=== PATIENT | male | born 1995 | race Caucasian/White ===

== ENCOUNTER 2019-08-22 07:39 | Emergency (ER) | payer MEDICAID ==
[~2019-08-22] VITALS: Ht 170.2 cm; Wt 86.4 kg
[~2019-08-22 07:39] MED LIST: IBUP200C PO; TYLE325T5 PO; VENTAER INH; ZITH250T PO
[2019-08-22 08:09] LABS: HEMATOCRIT 39.8 % (42.0-52.0); HEMOGLOBIN 12.8 g/dl (13.5-17.5); MEAN CORPUSCULAR HEMOGLOBIN 26.3 pg (27.0-33.0); MEAN CORPUSCULAR HGB CONC 32.2 g/dl (32.0-36.5); MEAN CORPUSCULAR VOLUME 81.9 fl (80.0-96.0); PLATELET COUNT, AUTOMATED 249 10^3/uL (150-450); RED BLOOD COUNT 4.86 10^6/uL (4.30-6.10); WHITE BLOOD COUNT 9.7 10^3/uL (4.0-10.0)
[2019-08-22 08:52] LABS: ACETAMINOPHEN LEVEL < 2.0 UG/ML (10.0-30.0); ALBUMIN 3.5 GM/DL (3.2-5.2); ALT/SGPT 22 U/L (12-78); BILIRUBIN,DIRECT 0.1 MG/DL (0.0-0.2); BILIRUBIN,TOTAL 0.3 MG/DL (0.2-1.0); BLOOD UREA NITROGEN 16 MG/DL (7-18); CALCIUM LEVEL 8.8 MG/DL (8.5-10.1); CARBON DIOXIDE LEVEL 29 MEQ/L (21-32); CHLORIDE LEVEL 104 MEQ/L (98-107); CREATININE FOR GFR 0.97 MG/DL (0.70-1.30); ETHYL ALCOHOL (ETHANOL) < 0.003 % (0.000-0.010); GLOMERULAR FILTRATION RATE > 60.0 (>60); GLUCOSE, FASTING 111 MG/DL (70-100); SALICYLATE LEVEL 1.9 MG/DL (5.0-30.0); SODIUM LEVEL 138 MEQ/L (136-145); TOTAL PROTEIN 7.4 GM/DL (6.4-8.2)
[2019-08-22 10:24] VITALS: BP 131/59
[2019-08-22 10:29] LABS: AMPHETAMINES LEVEL URINE NEGATIVE (NEGATIVE); BARBITURATES URINE NEGATIVE (NEGATIVE); BENZODIAZEPINES URINE NEGATIVE (NEGATIVE); CANNABINOIDS URINE NEGATIVE (NEGATIVE); COCAINE METABOLITE URINE POSITIVE (NEGATIVE); METHADONE URINE NEGATIVE (NEGATIVE); OPIATES URINE POSITIVE (NEGATIVE); PHENCYCLIDINE URINE NEGATIVE (NEGATIVE)
== END 2019-08-22 10:36 | disposition home or self-care (01) ==
LOC: M ED 07:39
DX: F11.20 Opioid dependence, uncomplicated (principal); F43.0 Acute stress reaction; F90.9 Attention-deficit hyperactivity disorder, unspecified type; F91.3 Oppositional defiant disorder; F17.200 Nicotine dependence, unspecified, uncomplicated
CPT/HCPCS: 36415; 80048; 80076; 80307; 84443; 85027; 99284; G0480

== ENCOUNTER 2019-12-20 22:34 | Emergency (ER) | payer MEDICAID ==
[~2019-12-20] VITALS: Ht 172.7 cm; Wt 90.9 kg
[2019-12-20 22:41] VITALS: BP 140/66
[2019-12-20] MEDS ORDERED: FLUO10CA15 PO (22:50)
[2019-12-20] MEDS ORDERED: SERO200T PO (22:50)
[2019-12-21] MEDS ORDERED: SUBO8MIS SL (03:36)
== END 2019-12-20 23:25 | disposition left against medical advice (07) ==
LOC: M ED 22:34
DX: Z53.21 Procedure and treatment not carried out due to patient leaving prior to being seen by health care provider (principal)

== ENCOUNTER 2019-12-21 03:02 | Emergency (ER) | payer MEDICAID ==
[~2019-12-21] VITALS: Ht 175.3 cm; Wt 90.9 kg
[~2019-12-21 03:02] MED LIST changes: +FLUO10CA15 PO; +SERO200T PO
[2019-12-21] MEDS ORDERED: SUBO8MIS SL (03:36)
[2019-12-21 03:46] LABS: HEMATOCRIT 37.1 % (42.0-52.0); HEMOGLOBIN 12.1 g/dl (13.5-17.5); MEAN CORPUSCULAR HEMOGLOBIN 25.6 pg (27.0-33.0); MEAN CORPUSCULAR HGB CONC 32.6 g/dl (32.0-36.5); MEAN CORPUSCULAR VOLUME 78.4 fl (80.0-96.0); PLATELET COUNT, AUTOMATED 267 10^3/uL (150-450); RED BLOOD COUNT 4.73 10^6/uL (4.30-6.10)
[2019-12-21 04:14] LABS: AMPHETAMINES LEVEL URINE NEGATIVE (NEGATIVE); BARBITURATES URINE NEGATIVE (NEGATIVE); BENZODIAZEPINES URINE NEGATIVE (NEGATIVE); CANNABINOIDS URINE POSITIVE (NEGATIVE); COCAINE METABOLITE URINE POSITIVE (NEGATIVE); METHADONE URINE NEGATIVE (NEGATIVE); OPIATES URINE POSITIVE (NEGATIVE); PHENCYCLIDINE URINE NEGATIVE (NEGATIVE)
[2019-12-21 04:15] LABS: ACETAMINOPHEN LEVEL < 2.0 UG/ML (10.0-30.0); ALT/SGPT 39 U/L (12-78); BILIRUBIN,DIRECT 0.1 MG/DL (0.0-0.2); BILIRUBIN,TOTAL 0.3 MG/DL (0.2-1.0); BLOOD UREA NITROGEN 12 MG/DL (7-18); CALCIUM LEVEL 8.4 MG/DL (8.5-10.1); CARBON DIOXIDE LEVEL 24 MEQ/L (21-32); CHLORIDE LEVEL 107 MEQ/L (98-107); CREATININE FOR GFR 1.34 MG/DL (0.70-1.30); ETHYL ALCOHOL (ETHANOL) 0.003 % (0.000-0.010); GLOMERULAR FILTRATION RATE > 60.0 (>60); GLUCOSE, FASTING 84 MG/DL (70-100); POTASSIUM SERUM 3.3 MEQ/L (3.5-5.1); SALICYLATE LEVEL 2.4 MG/DL (5.0-30.0); SODIUM LEVEL 142 MEQ/L (136-145); TOTAL PROTEIN 7.6 GM/DL (6.4-8.2)
[2019-12-21 10:21] VITALS: BP 146/64
== END 2019-12-21 10:23 | disposition home or self-care (01) ==
LOC: M ED 03:02
DX: F19.10 Other psychoactive substance abuse, uncomplicated (principal); F17.200 Nicotine dependence, unspecified, uncomplicated; F15.10 Other stimulant abuse, uncomplicated; Z79.899 Other long term (current) drug therapy
CPT/HCPCS: 80048; 80076; 80307; 84443; 85027; 99284; G0480

== ENCOUNTER 2020-01-20 05:49 | Emergency (ER) | payer MEDICAID ==
[~2020-01-20] VITALS: Ht 175.3 cm; Wt 90.9 kg
[~2020-01-20 05:49] MED LIST changes: +SUBO8MIS SL
[2020-01-20 05:50] VITALS: BP 148/68
== END 2020-01-20 06:50 | disposition left against medical advice (07) ==
LOC: M ED 05:49
DX: Z53.21 Procedure and treatment not carried out due to patient leaving prior to being seen by health care provider (principal)

== ENCOUNTER 2020-02-19 18:16 | Emergency (ER) | payer MEDICAID ==
[~2020-02-19] VITALS: Ht 175.3 cm; Wt 85.9 kg
[2020-02-19 18:42] LABS: HEMATOCRIT 47.5 % (42.0-52.0); HEMOGLOBIN 14.5 g/dl (13.5-17.5); MEAN CORPUSCULAR HEMOGLOBIN 24.9 pg (27.0-33.0); MEAN CORPUSCULAR HGB CONC 30.5 g/dl (32.0-36.5); MEAN CORPUSCULAR VOLUME 81.5 fl (80.0-96.0); PLATELET COUNT, AUTOMATED 261 10^3/uL (150-450); RED BLOOD COUNT 5.83 10^6/uL (4.30-6.10); WHITE BLOOD COUNT 10.4 10^3/uL (4.0-10.0)
[2020-02-19 19:18] LABS: ACETAMINOPHEN LEVEL < 2.0 UG/ML (10.0-30.0); ALBUMIN 3.5 GM/DL (3.2-5.2); ALT/SGPT 48 U/L (12-78); BILIRUBIN,DIRECT 0.2 MG/DL (0.0-0.2); BILIRUBIN,TOTAL 0.4 MG/DL (0.2-1.0); BLOOD UREA NITROGEN 11 MG/DL (7-18); CARBON DIOXIDE LEVEL 24 MEQ/L (21-32); CHLORIDE LEVEL 108 MEQ/L (98-107); CREATININE FOR GFR 1.14 MG/DL (0.70-1.30); ETHYL ALCOHOL (ETHANOL) < 0.003 % (0.000-0.010); GLOMERULAR FILTRATION RATE > 60.0 (>60); GLUCOSE, FASTING 148 MG/DL (70-100); POTASSIUM SERUM 4.4 MEQ/L (3.5-5.1); SALICYLATE LEVEL < 1.7 MG/DL (5.0-30.0); SODIUM LEVEL 141 MEQ/L (136-145); TOTAL PROTEIN 7.7 GM/DL (6.4-8.2)
[2020-02-19 20:37] VITALS: BP 125/71
== END 2020-02-19 20:41 | disposition home or self-care (01) ==
LOC: M ED 18:16
DX: T40.601A Poisoning by unspecified narcotics, accidental (unintentional), initial encounter (principal); Y92.9 Unspecified place or not applicable; Y93.9 Activity, unspecified; F90.0 Attention-deficit hyperactivity disorder, predominantly inattentive type; F91.3 Oppositional defiant disorder; F17.200 Nicotine dependence, unspecified, uncomplicated; F19.10 Other psychoactive substance abuse, uncomplicated
CPT/HCPCS: 80048; 80076; 84443; 85027; 99284; G0480

== ENCOUNTER 2020-06-08 15:35 | Inpatient (IN) | payer MEDICAID ==
[~2020-06-08 15:35] MED LIST changes: -FLUO10CA15 PO; +FLUO10CA16 PO
[2020-06-08] MEDS ORDERED: VANCOMYCIN 1000MG/20ML VIAL ONE (18:43)
[2020-06-08] MEDS ORDERED: VANCOMYCIN 1000MG/20ML VIAL As Ordered ONE (18:43)
[2020-06-08] MEDS ORDERED: LORazepam 2 MG/ML VIAL ONE ×2 (18:43→21:00)
[2020-06-08] MEDS ORDERED: LORazepam 2 MG/ML VIAL As Ordered ONE ×2 (18:44→21:04)
[2020-06-08] MEDS ORDERED: NITROGLYCERIN 2% OINT 1 GM *U/D* PKT As Ordered ONE (19:52)
[2020-06-08] MEDS ORDERED: NITROGLYCERIN 2% OINT 1 GM *U/D* PKT ONE (19:52)
[2020-06-09] MEDS ORDERED: KETOROLAC 30 MG/ML 1ML VIAL ONE ×3 (10:53→23:00)
[2020-06-09] MEDS ORDERED: ENOXAPARIN 40MG/0.4ML SYRINGE (J1650 PER 10MG) ONE (10:53)
[2020-06-09] MEDS ORDERED: VANCOMYCIN 1000MG/20ML VIAL As Ordered ONE ×2 (10:53→18:14)
[2020-06-09] MEDS ORDERED: ACETAMINOPHEN 500 MG TAB ONE ×3 (10:53→23:00)
[2020-06-09] MEDS ORDERED: ACETAMINOPHEN 500 MG TAB As Ordered ONE ×3 (10:53→23:16)
[2020-06-09] MEDS ORDERED: KETOROLAC 30 MG/ML 1ML VIAL As Ordered ONE ×3 (10:53→23:16)
[2020-06-09] MEDS ORDERED: VANCOMYCIN 1000MG/20ML VIAL ONE ×2 (10:53→18:00)
[2020-06-09] MEDS ORDERED: ENOXAPARIN 40MG/0.4ML SYRINGE (J1650 PER 10MG) As Ordered ONE ×2 (10:53→21:07)
[2020-06-09] MEDS ORDERED: VANCOMYCIN 500MG/10ML VIAL ONE (13:00)
[2020-06-09] MEDS ORDERED: VANCOMYCIN 500MG/10ML VIAL As Ordered ONE (13:19)
[2020-06-10] MEDS ORDERED: VANCOMYCIN 1000MG/20ML VIAL As Ordered ONE ×3 (03:29→18:34)
[2020-06-10] MEDS ORDERED: VANCOMYCIN 1000MG/20ML VIAL ONE ×3 (03:30→18:30)
[2020-06-10] MEDS ORDERED: ENOXAPARIN 40MG/0.4ML SYRINGE (J1650 PER 10MG) ONE (06:00)
[2020-06-10] MEDS ORDERED: ACETAMINOPHEN 500 MG TAB ONE ×4 (06:00→22:44)
[2020-06-10] MEDS ORDERED: KETOROLAC 30 MG/ML 1ML VIAL ONE ×4 (06:00→22:44)
[2020-06-10] MEDS ORDERED: KETOROLAC 30 MG/ML 1ML VIAL As Ordered ONE ×4 (06:07→22:44)
[2020-06-10] MEDS ORDERED: ACETAMINOPHEN 500 MG TAB As Ordered ONE ×4 (06:07→22:45)
[2020-06-10] MEDS ORDERED: ENOXAPARIN 40MG/0.4ML SYRINGE (J1650 PER 10MG) As Ordered ONE (07:58)
[2020-06-11] MEDS ORDERED: VANCOMYCIN 1000MG/20ML VIAL ONE ×3 (02:50→18:00)
[2020-06-11] MEDS ORDERED: KETOROLAC 30 MG/ML 1ML VIAL ONE ×4 (02:50→22:20)
[2020-06-11] MEDS ORDERED: ACETAMINOPHEN 500 MG TAB ONE ×4 (02:50→22:20)
[2020-06-11] MEDS ORDERED: VANCOMYCIN 1000MG/20ML VIAL As Ordered ONE ×3 (02:52→18:42)
[2020-06-11] MEDS ORDERED: KETOROLAC 30 MG/ML 1ML VIAL As Ordered ONE ×4 (05:08→22:28)
[2020-06-11] MEDS ORDERED: ACETAMINOPHEN 500 MG TAB As Ordered ONE ×4 (05:09→22:28)
[2020-06-11] MEDS ORDERED: ENOXAPARIN 40MG/0.4ML SYRINGE (J1650 PER 10MG) ONE (09:30)
[2020-06-11] MEDS ORDERED: ENOXAPARIN 40MG/0.4ML SYRINGE (J1650 PER 10MG) As Ordered ONE (09:33)
[2020-06-12] MEDS ORDERED: VANCOMYCIN 1000MG/20ML VIAL ONE ×2 (02:30→10:00)
[2020-06-12] MEDS ORDERED: VANCOMYCIN 1000MG/20ML VIAL As Ordered ONE ×2 (02:31→10:09)
[2020-06-12] MEDS ORDERED: ACETAMINOPHEN 500 MG TAB As Ordered ONE ×2 (05:13→10:11)
[2020-06-12] MEDS ORDERED: KETOROLAC 30 MG/ML 1ML VIAL As Ordered ONE ×2 (05:13→10:09)
[2020-06-12] MEDS ORDERED: ACETAMINOPHEN 500 MG TAB ONE ×2 (05:20→10:00)
[2020-06-12] MEDS ORDERED: KETOROLAC 30 MG/ML 1ML VIAL ONE ×2 (05:20→10:00)
[2020-06-12] MEDS ORDERED: ENOXAPARIN 40MG/0.4ML SYRINGE (J1650 PER 10MG) As Ordered ONE (10:11)
--- NOTE | 2020-07-23 11:13 | ECGEPIP ---
SINUS RHYTHM WITH MARKED SINUS ARRHYTHMIA BORDERLINE RIGHT AXIS DEVIATION BORDERLINE ECG SEE SCANNED DOWNTIME REPORT MTDD
[2020-07-29 13:43] LABS: INR 1.1; PARTIAL THROMBOPLASTIN TIME 32.1 SECONDS (24.2-38.5); PROTHROMBIN TIME 14.5 SECONDS (12.5-14.3)
--- NOTE | 2020-07-29 13:57 | ECGEPIP ---
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
[2020-07-29 20:42] LABS: HEMATOCRIT 39.5 % (42.0-52.0); HEMOGLOBIN 12.6 g/dl (13.5-17.5); MEAN CORPUSCULAR HEMOGLOBIN 26.3 pg (27.0-33.0); MEAN CORPUSCULAR VOLUME 82.5 fl (80.0-96.0); RED BLOOD COUNT 4.79 10^6/uL (4.30-6.10); WHITE BLOOD COUNT 6.3 10^3/uL (4.0-10.0)
[2020-07-29 20:43] LABS: BASO % 0.6 % (0.0-1.0); EOS # 0.2 10^3/uL (0.0-0.5); EOS % 2.7 % (0.0-3.0); ERYTHROCYTE SEDIMENTATION RATE 7 mm/hr (0-15); LYMPH # 2.1 10^3/uL (1.5-5.0); LYMPH % 33.7 % (24.0-44.0); MEAN CORPUSCULAR HGB CONC 31.9 g/dl (32.0-36.5); MONO # 0.4 10^3/uL (0.0-0.8); MONO % 6.5 % (0.0-5.0); NEUTROPHILS # 3.6 10^3/uL (1.5-8.5); NEUTROPHILS % 56.2 % (36.0-66.0); PLATELET COUNT, AUTOMATED 228 10^3/uL (150-450)
[2020-07-30 01:12] LABS: ERYTHROCYTE SEDIMENTATION RATE 7 mm/hr (0-15)
[2020-07-30 01:30] LABS: BASO # 0.1 10^3/uL (0.0-0.2); BASO % 0.4 % (0.0-1.0); EOS % 0.2 % (0.0-3.0); HEMATOCRIT 42.8 % (42.0-52.0); LYMPH # 2.6 10^3/uL (1.5-5.0); LYMPH % 19.4 % (24.0-44.0); MEAN CORPUSCULAR HEMOGLOBIN 25.9 pg (27.0-33.0); MEAN CORPUSCULAR HGB CONC 32.7 g/dl (32.0-36.5); MEAN CORPUSCULAR VOLUME 79.3 fl (80.0-96.0); MONO % 7.3 % (0.0-5.0); NEUTROPHILS # 9.7 10^3/uL (1.5-8.5); NEUTROPHILS % 72.3 % (36.0-66.0); PLATELET COUNT, AUTOMATED 270 10^3/uL (150-450); WHITE BLOOD COUNT 13.3 10^3/uL (4.0-10.0)
[2020-07-30 10:56] LABS: INR 1.1; PROTHROMBIN TIME 14.4 SECONDS (12.5-14.3)
[2020-07-30 11:07] LABS: APPEARANCE, URINE HAZY (CLEAR); BACTERIA, URINE AUTO NEGATIVE (NEGATIVE); BILIRUBIN, URINE AUTO NEGATIVE (NEGATIVE); BLOOD, URINE BLOOD NEGATIVE (NEGATIVE); COLOR, URINE YELLOW (YELLOW); GLUCOSE, URINE (UA) AUTO NEGATIVE (NEGATIVE); KETONE, URINE AUTO NEGATIVE (NEGATIVE); LEUKOCYTE ESTERASE, URINE AUTO NEGATIVE (NEGATIVE); NITRITE, URINE AUTO NEGATIVE (NEGATIVE); PROTEIN, URINE AUTO NEGATIVE (NEGATIVE); RBC, URINE AUTO 0 /HPF (0-3); SPECIFIC GRAVITY URINE AUTO 1.025 (1.002-1.035); SQUAMOUS EPITHELIAL CELL UR AU 0 /HPF (0-6); UROBILINOGEN, URINE AUTO 0.2 mg/dL (0.0-2.0); WBC, URINE AUTO 1 /HPF (0-3)
[2020-07-30 12:05] LABS: BASO # 0.1 10^3/uL (0.0-0.2); BASO % 0.6 % (0.0-1.0); EOS # 0.2 10^3/uL (0.0-0.5); HEMATOCRIT 40.5 % (42.0-52.0); HEMOGLOBIN 13.1 g/dl (13.5-17.5); LYMPH # 2.1 10^3/uL (1.5-5.0); LYMPH % 24.8 % (24.0-44.0); MEAN CORPUSCULAR HEMOGLOBIN 26.1 pg (27.0-33.0); MEAN CORPUSCULAR HGB CONC 32.3 g/dl (32.0-36.5); MEAN CORPUSCULAR VOLUME 80.8 fl (80.0-96.0); MONO # 0.8 10^3/uL (0.0-0.8); MONO % 9.3 % (0.0-5.0); NEUTROPHILS # 5.4 10^3/uL (1.5-8.5); NEUTROPHILS % 62.8 % (36.0-66.0); PLATELET COUNT, AUTOMATED 225 10^3/uL (150-450); RED BLOOD COUNT 5.01 10^6/uL (4.30-6.10); WHITE BLOOD COUNT 8.6 10^3/uL (4.0-10.0)
[2020-08-08 07:24] LABS: INR 1.05; PARTIAL THROMBOPLASTIN TIME 32.9 SECONDS (24.2-38.5); PROTHROMBIN TIME 13.9 SECONDS (12.5-14.3)
[2020-08-08 09:05] LABS: BASO % 0.6 % (0.0-1.0); EOS # 0.2 10^3/uL (0.0-0.5); HEMATOCRIT 40.3 % (42.0-52.0); HEMOGLOBIN 12.9 g/dl (13.5-17.5); LYMPH # 1.6 10^3/uL (1.5-5.0); LYMPH % 32.1 % (24.0-44.0); MEAN CORPUSCULAR HEMOGLOBIN 26.5 pg (27.0-33.0); MEAN CORPUSCULAR VOLUME 82.9 fl (80.0-96.0); MONO # 0.6 10^3/uL (0.0-0.8); MONO % 10.9 % (0.0-5.0); NEUTROPHILS # 2.6 10^3/uL (1.5-8.5); NEUTROPHILS % 52.2 % (36.0-66.0); PLATELET COUNT, AUTOMATED 198 10^3/uL (150-450); RED BLOOD COUNT 4.86 10^6/uL (4.30-6.10)
[2020-08-08 10:16] LABS: INR 1.08; PARTIAL THROMBOPLASTIN TIME 33.7 SECONDS (24.2-38.5); PROTHROMBIN TIME 14.3 SECONDS (12.5-14.3)
[2020-08-08 11:13] LABS: BASO # 0.1 10^3/uL (0.0-0.2); BASO % 0.8 % (0.0-1.0); EOS # 0.2 10^3/uL (0.0-0.5); EOS % 3.3 % (0.0-3.0); HEMATOCRIT 39.4 % (42.0-52.0); HEMOGLOBIN 12.4 g/dl (13.5-17.5); LYMPH # 2.2 10^3/uL (1.5-5.0); LYMPH % 35.4 % (24.0-44.0); MEAN CORPUSCULAR HEMOGLOBIN 25.9 pg (27.0-33.0); MEAN CORPUSCULAR HGB CONC 31.5 g/dl (32.0-36.5); MEAN CORPUSCULAR VOLUME 82.3 fl (80.0-96.0); MONO # 0.6 10^3/uL (0.0-0.8); MONO % 8.7 % (0.0-5.0); NEUTROPHILS # 3.3 10^3/uL (1.5-8.5); NEUTROPHILS % 51.6 % (36.0-66.0); PLATELET COUNT, AUTOMATED 208 10^3/uL (150-450); RED BLOOD COUNT 4.79 10^6/uL (4.30-6.10); WHITE BLOOD COUNT 6.3 10^3/uL (4.0-10.0)
--- NOTE | 2020-08-14 15:09 | DS ---
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 Fabian Stevens of orthopedic surgery. PRIMARY DISCHARGE DIAGNOSES: * Acute toxic encephalopathy secondary to drug overdose. * Intentional recreational drug ingestion with history of skin popping and Treva. * Right hand edema with chronic fracture. * Left thumb gangrene, dry. 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 * Left hand cellulitis secondary to skin popping with no abscess on CT. * History of polysubstance abuse. * Sinus bradycardia. DISCHARGE MEDICATIONS: * Bactrim double-strength one tab orally twice a day for seven days. * Cephalexin 500 mg every six hours for seven days. * Ibuprofen every six hours as needed for pain or fever. * Acetaminophen 650 every six hours as needed for pain and fever. * Topical Bacitracin to open lesions on skin two times a day for ten days. DISCHARGE INSTRUCTIONS: Patient is to follow-up with orthopedic hand surgeon at [facility] in [place] within one week regarding left thumb gangrene for amputation secondary to drug use with atheroembolism. HOSPITAL COURSE: This is a 25-year-old inmate at a correctional facility who was brought in by police with altered mental status. Patient was active strangely with bilateral upper and lower extremities with tonic-clonic movements. Patient was found to have ingested K2 and Treva prior to arrest and was brought to the ER by police. Patient received Ativan in the ER and was given 12 hourly and remained sedated. He was noted to have right hand swelling, which was believed from trauma. The left hand had a necrotic area on the left thumb, as well as a cellulitic area on the dorsum of the hand measuring about 1.5 cm. X-rays showed chronic fracture of the right hand. The left hand had some edema and no abscess. CT of the left hand showed no air abscess and no fracture. The patients white count was 13,000. He was admitted for cellulitis of the left hand and evaluation of gangrenous necrotic area. On 06/09/2020, the patient was started on IV vancomycin. He received a total of nine doses with white count decreasing from admission of 13.3. Blood culture remained negative. Metabolic panel was normal. He was back to baseline mentation after 24 hours. White count on discharge was 6.3. COVID-19 was negative. Per evaluation by Dr. Fabian Stevens, the patient appeared to have an atheroemboli causing the dry gangrene of the left thumb and recommended vascular services. At this time, there is no vascular surgery available at [facility]. Dr. Almazan from [facility] discussed by telephone on the transfer center line and suggested outpatient follow-up to allow the gangrene to demarcate; most often will fall off or will need amputation of the tip of the joint. The patient had no recurrent fevers during this admission. DISCHARGE PHYSICAL EXAMINATION: VITAL SIGNS: Temperature 97, pulse 82, respiratory rate 18, blood pressure 121/68, 98% on room air. GENERAL: Patient is awake, alert, and oriented x3. No conversational dyspnea. HEENT No jaundice. No icterus. No JVD or thyromegaly. Mucous membranes. LUNGS: Clear to auscultation. No wheezing, rales, or rhonchi. HEART: S1, S2. Sinus rhythm with no murmurs, rubs, or gallops. ABDOMEN: Soft, nontender, and nondistended with positive bowel sounds x4 quadrants. No rebound or guarding. No hepatosplenomegaly. EXTREMITIES: No cyanosis of the bilateral lower extremities, clubbing, or any pitting edema. Patient has had multiple open lesions bilateral upper and lower extremities from a prior history of skin popping. He does have an open lesion on the left dorsum of the hand measuring 0.5 cm that has no fluctuance, some erythema, and no purulence. The left thumb is gangrenous with cyanosis and purplish color. Patients pulses are intact both ulnar and radial nerve pulses. He is able to extend and flex the joints of the hand with no difficulty. Motor function was 5/5. Tip of the left thumb is cool to touch, discolored bluish and purplish. LABORATORY DATA: White count 6.3, hemoglobin 12, hematocrit 39, platelets 208,000. Blood cultures negative. COVID-19 negative. Sodium 145, potassium 3.7, chloride 113, bicarbonate 29, BUN 11, creatinine 0.7, glucose 90. IMAGING STUDIES: X-ray of the left hand with no acute abnormality. CT with no abscess and no air. Right hand swelling and chronic fracture. DISCHARGE INSTRUCTIONS: Patient is to follow-up with Dr. Almazan at [facility] for amputation of ischemic injury secondary to IV drug use causing dry gangrene. TIME SPENT ON DISCHARGE: 30 minutes. FLAVIA
[2020-08-16 12:50] LABS: ERYTHROCYTE SEDIMENTATION RATE 7 mm/hr (0-15)
[2020-08-17 01:20] LABS: ALBUMIN 4.4 GM/DL (3.2-5.2); ALT/SGPT 143 U/L (12-78); BILIRUBIN,TOTAL 0.7 MG/DL (0.2-1.0); BLOOD UREA NITROGEN 22 MG/DL (7-18); CALCIUM LEVEL 9.4 MG/DL (8.5-10.1); CARBON DIOXIDE LEVEL 27 MEQ/L (21-32); CHLORIDE LEVEL 105 MEQ/L (98-107); CPK CREATINE PHOSPHOKINASE 619 U/L (39-308); CREATININE FOR GFR 1.25 MG/DL (0.70-1.30); ETHYL ALCOHOL (ETHANOL) < 0.003 % (0.000-0.010); GLOMERULAR FILTRATION RATE > 60.0 (>60); GLUCOSE, FASTING 99 MG/DL (70-100); POTASSIUM SERUM 3.9 MEQ/L (3.5-5.1); SODIUM LEVEL 137 MEQ/L (136-145); TOTAL PROTEIN 8.2 GM/DL (6.4-8.2)
[2020-08-21 10:57] LABS: AMPHETAMINES LEVEL URINE POSITIVE (NEGATIVE); BARBITURATES URINE NEGATIVE (NEGATIVE); BENZODIAZEPINES URINE NEGATIVE (NEGATIVE); CANNABINOIDS URINE NEGATIVE (NEGATIVE); COCAINE METABOLITE URINE NEGATIVE (NEGATIVE); METHADONE URINE NEGATIVE (NEGATIVE); OPIATES URINE POSITIVE (NEGATIVE); PHENCYCLIDINE URINE NEGATIVE (NEGATIVE)
[2020-08-31 10:03] LABS: ALBUMIN 3.1 GM/DL (3.2-5.2); ALT/SGPT 92 U/L (12-78); BILIRUBIN,TOTAL 0.4 MG/DL (0.2-1.0); BLOOD UREA NITROGEN 10 MG/DL (7-18); CALCIUM LEVEL 8.5 MG/DL (8.5-10.1); CARBON DIOXIDE LEVEL 29 MEQ/L (21-32); CHLORIDE LEVEL 111 MEQ/L (98-107); CPK CREATINE PHOSPHOKINASE 56 U/L (39-308); CREATININE FOR GFR 0.83 MG/DL (0.70-1.30); GLOMERULAR FILTRATION RATE > 60.0 (>60); GLUCOSE, FASTING 109 MG/DL (70-100); POTASSIUM SERUM 3.8 MEQ/L (3.5-5.1); SODIUM LEVEL 142 MEQ/L (136-145); TOTAL PROTEIN 6.3 GM/DL (6.4-8.2)
[2020-08-31 16:41] LABS: ALBUMIN 3.1 GM/DL (3.2-5.2); ALT/SGPT 97 U/L (12-78); BILIRUBIN,TOTAL 0.3 MG/DL (0.2-1.0); BLOOD UREA NITROGEN 11 MG/DL (7-18); CALCIUM LEVEL 8.5 MG/DL (8.5-10.1); CARBON DIOXIDE LEVEL 29 MEQ/L (21-32); CHLORIDE LEVEL 113 MEQ/L (98-107); CPK CREATINE PHOSPHOKINASE 88 U/L (39-308); CREATININE FOR GFR 0.78 MG/DL (0.70-1.30); GLOMERULAR FILTRATION RATE > 60.0 (>60); GLUCOSE, FASTING 90 MG/DL (70-100); POTASSIUM SERUM 3.7 MEQ/L (3.5-5.1); SODIUM LEVEL 145 MEQ/L (136-145); TOTAL PROTEIN 6.3 GM/DL (6.4-8.2)
[2020-09-01 11:08] LABS: ALBUMIN 3.3 GM/DL (3.2-5.2); ALT/SGPT 120 U/L (12-78); BILIRUBIN,TOTAL 0.8 MG/DL (0.2-1.0); BLOOD UREA NITROGEN 17 MG/DL (7-18); CALCIUM LEVEL 8.2 MG/DL (8.5-10.1); CARBON DIOXIDE LEVEL 23 MEQ/L (21-32); CHLORIDE LEVEL 112 MEQ/L (98-107); CPK CREATINE PHOSPHOKINASE 428 U/L (39-308); CREATININE FOR GFR 0.85 MG/DL (0.70-1.30); GLOMERULAR FILTRATION RATE > 60.0 (>60); GLUCOSE, FASTING 90 MG/DL (70-100); HEPATITIS A ANTIBODY IGM NEGATIVE (NEGATIVE); HEPATITIS B CORE ANTIBODY IGM NEGATIVE (NEGATIVE); HEPATITIS B SURFACE ANTIGEN NEGATIVE (NEGATIVE); POTASSIUM SERUM 4.1 MEQ/L (3.5-5.1); SODIUM LEVEL 142 MEQ/L (136-145); TOTAL PROTEIN 6.6 GM/DL (6.4-8.2)
[2020-09-01 11:08] LABS: C REACTIVE PROTEIN QUANTITATIV 0.73 MG/DL (0.00-0.30); HIV SCREEN CENTAUR SOURCE NEGATIVE (NEGATIVE); PROLACTIN 10.8 NG/ML (2.1-17.7)
[2020-09-01 11:17] LABS: HEPATITIS C VIRUS ABY INDEX > 11.0 INDEX (<0.8)
[2020-09-02 20:47] LABS: ALBUMIN 3.2 GM/DL (3.2-5.2); ALT/SGPT 105 U/L (12-78); BILIRUBIN,TOTAL 0.5 MG/DL (0.2-1.0); BLOOD UREA NITROGEN 12 MG/DL (7-18); CALCIUM LEVEL 8.3 MG/DL (8.5-10.1); CARBON DIOXIDE LEVEL 27 MEQ/L (21-32); CHLORIDE LEVEL 110 MEQ/L (98-107); CPK CREATINE PHOSPHOKINASE 152 U/L (39-308); CREATININE FOR GFR 0.73 MG/DL (0.70-1.30); GLOMERULAR FILTRATION RATE > 60.0 (>60); GLUCOSE, FASTING 86 MG/DL (70-100); POTASSIUM SERUM 4.1 MEQ/L (3.5-5.1); SODIUM LEVEL 139 MEQ/L (136-145); TOTAL PROTEIN 6.4 GM/DL (6.4-8.2)
== END 2020-06-12 09:00 | DRG 383 ==
LOC: M ED 15:35 → M MS5PR 06-09 20:20
PROVIDERS: ADMIT Internal Medicine; ATTEND Internal Medicine
DX: L03.114 Cellulitis of left upper limb (principal); G92 Toxic encephalopathy; I75.012 Atheroembolism of left upper extremity; I96 Gangrene, not elsewhere classified; F11.90 Opioid use, unspecified, uncomplicated; R00.1 Bradycardia, unspecified

== ENCOUNTER → 2021-03-25 | Outpatient (REF) | payer OTHER | LOC: M LAB REF 15:47 | PROVIDERS: ATTEND Surgery | DX: Z20.822 Contact with and (suspected) exposure to COVID-19 (principal) ==